=== PATIENT | female | born 1995 | race Caucasian/White ===

== ENCOUNTER 2017-02-01 19:21 | Emergency (ER) | payer BC ==
[2017-02-01] MEDS ORDERED: KETOROLAC TROMETHAMINE 30 MG/ML VIAL IV ONE (19:53)
[2017-02-01] MEDS ORDERED: KETOROLAC TROMETHAMINE 30 MG/ML VIAL ONE (19:55)
--- OUTSIDE RECORDS SUMMARY | 2017-02-01 20:26 | XMS REPORT | Continuity of Care Document ---
:1995 Author Organization [facility] ([facility]) Address [place] [address] Phone [phone] Care Team Providers Name Role Phone Provider, No-Primary Care Primary Care Provider Unavailable Source Comments This disclosure is being made pursuant to the Care Everywhere program, applicable federal and state laws, and may not contain all informaitonavailable regarding this patient.[facility] ([facility]) Active Allergies and Adverse Reactions No Known Allergies Current Medications Prescription Sig. Disp. Refills Start Date End Date Status VITS Take by mouth. Active W-CA,FE,FA,<1MG, ( VITAMIN PO) cephalexin 500 mg Take 1 Cap by mouth 2 10 Cap 0 09/04/2012 Active capsule times daily. Indications: UTI cephalexin 250 mg Take 1 Cap by mouth 30 Cap 1 09/04/2012 Active capsule at bedtime. Indications: UTI prophylaxis Active Problems Problem Noted Date UTI (lower urinary tract infection) 09/04/2012 Social History Tobacco Use Types Packs/Day Years Used Date Never Smoker Alcohol Use Drinks/Week oz/Week Comments No Last Filed Vital Signs Vital Sign Reading Time Taken Blood Pressure 126/65 09/04/2012 10:45 AM [employer] Pulse 85 09/04/2012 10:45 AM [employer] Temperature 36.2 C (97.2 F) 09/04/2012 10:45 AM [employer] Respiratory Rate 16 09/04/2012 10:45 AM [employer] Height 1.702 m (5' 7") 08/23/2012 2:15 PM [employer] Weight 80.1 kg (176 lb 9.4 oz) 08/23/2012 2:15 PM [employer] Body Mass Index 27.65 08/23/2012 2:15 PM [employer] Oxygen Saturation 98% 09/04/2012 10:45 AM [employer] Plan of Care Health Maintenance Due Date Last Done Comments Hepatitis B Vaccine (1 of 3 - Primary Series) 1993 HPV Vaccine (1 of 3 - Female/Unknown 3 Dose Series) 2004 Tdap Vaccine 2004 Cervical Cancer Screening 2011 Lipid Disorder Screening 2011 MMR Vaccine 2011 Td Vaccine 2011 Varicella Vaccine (1 of 2 - Adult - No Evidence of 2011 Immunity) Influenza Vaccine: Seasonal (#1) 05/18/2016 Results from Last 3 Months Not on file
--- NOTE | 2017-02-01 20:39 | ERNOTE ---
Trauma/Assault HPI - General Stated Complaint: HEAD INJURY FELL OFF HORSE Time Seen by Provider: 02/01/17 19:42 Source: patient, family Exam Limitations: no limitations - Immun/Allergies/Home Medications Immunizations: IMMUNIZATION HX Immunizations Up to Date Yes History of Influenza Vaccine Yes Hx Pneumococcal Vaccination More Information Required Allergies/Adverse Reactions: Allergies No Known Allergies Allergy (Verified 02/01/17 19:46) Home Medications: HOME MEDICATIONS HYDROcodone/ACETAMINOPHEN [Vicodin 5-325] 1 - 2 tab PO Q4H PRN 04/11/13 [Last Taken Unknown] Norethindrone-Ethinyl Estrad [Ortho-Novum] 1 each PO DAILY 04/11/13 [Last Taken Unknown] - History of Present Illness Date (Duration): 02/01/17 Time (Timing): 18:45 Narrative: Patient was riding her horse and got bucked off. She only remembers sitting inher mothers van and driving to the hospital. Her father states that he saw her fall, she never loss consciousness, was talking the whole time and it only took a few minutes to get her in the van so her time of amnesia would be 5-10 minutes. She complains of headache 6/10 and pain in her left elbow, mild pain in left knee. Location Occurred: Reports: home Pain Location: Reports: head, upper extremity Method of Injury: Reports: fall Loss of Consciousness: Reports: no loss of consciousness, remembers coming to hospital Associated Symptoms - Trauma: Reports: headache, dizziness. Denies: confusion, vision changes Review of Systems - Review of Systems Constitutional: Absent: recent illness, fever, chills EYE: Absent: double vision ENT: Absent: nose congestion, sore throat Respiratory: Absent: shortness of breath, cough Cardiology: Absent: chest pain, palpitations Gastrointestinal/Abdominal: Absent: nausea, vomiting, diarrhea, abdominal pain Genitourinary: Present: no symptoms reported Musculoskeletal: Present: See HPI Neurological: Present: headache. Absent: weakness, numbness - Patient's Past Medical History Patient History - Medical: No pertinent hx Patient History - Cardiac/Respiratory: No pertinent hx Patient History - Cancer: No Hx of Cancer Patient History - Surgical Procedures: Cholecystectomy Patient History - Other: Other LMP (females 10-50): now LMP (Calendar): 01/30/17 - Social History Living Situations: other Abuse History: No History of abuse Psych History: No pertinent hx Smoking Status: Current every day smoker Have you smoked in the past 12 months: Yes Do you dip or chew tobacco: Yes Patient requests Smoking Cessation Consult: No Initiate information on Smoking Cessation: No Alcohol Use: occasionally Drug Use: none - Immunizations Immunizations Up to Date: Yes Hx Pneumococcal Vaccination: More Information Required to Determine History of Influenza Vaccine: Yes Physical Exam - Physical Exam General Appearance: Present: wd/wn, alert, no apparent distress Eye Exam: Normal inspection: bilateral, PERRL: bilateral, EOMI: bilateral Ears, Nose, Throat: Present: normal ENT inspection, normal pharynx, other - small abrasions on right posterior scalp, non bleeding Neck: Present: normal inspection, nontender, supple, full range of motion Respiratory: Present: no respiratory distress, normal breath sounds, no accessory muscle use, chest nontender, lungs clear Cardiovascular/Chest: Present: regular rate, rhythm, no murmur Gastrointestinal/Abdominal: Present: normal bowel sounds, nontender, nondistended, soft Back Exam: Present: normal inspection, normal range of motion, no CVA tenderness , no vertebral tenderness, other - superficial abrasion left posterior chest, no tenderness Extremity Exam: Present: normal except -, other - small abrasion left anterior knee, no swelling, normal ROM, small abrasion over left elbow, pain of range of motion, no obvious deformety Neurological Exam: Present: alert, oriented, normal mood/affect, no motor/ sensory deficits Skin Exam: Present: normal color, warm/dry ED Progress - Vital Signs Patient's Vital Signs:: I have reviewed the patient's vital signs. Vital Signs: Vital Signs 02/01/17 02/01/17 19:22 20:09 Temperature 37.3 C Pulse Rate 73 70 Respiratory 18 20 Rate Blood Pressure 149/90 146/85 O2 Sat by Pulse 99 70 L Oximetry - X-Ray X-Ray #1 X-Ray: chest - no acute Interpretation: Interp. by me X-Ray #2 X-Ray: elbow - no bony injury Interpretation: Interp. by me X-Ray #3 X-Ray: knee - no bony injury Interpretation: Interp. by me - Progress/Reassessment Chief Complaint: Fall Progress Note-Subjective: 02/01/17 21:07 discussed results with patient and family, feeling much better after toradol Departure Clinical Impression: Concussion Qualifiers: Encounter type: initial encounter Loss of consciousness presence/duration: without LOC Qualified Code(s): S06.0X0A - Concussion without loss of consciousness, initial encounter Contusion of elbow, left Qualifiers: Encounter type: initial encounter Qualified Code(s): S50.02XA - Contusion of left elbow, initial encounter Scalp laceration Qualifiers: Encounter type: initial encounter Qualified Code(s): S01.01XA - Laceration without foreign body of scalp, initial encounter - Departure Disposition: Home self-care Condition: Good Instructions: Concussion, Adult, [id number], Contusion, [id number], Form - Excuse from Work, School, or Physical Activity Additional Instructions: take over the counter ibuprofen as needed for pain Referrals: Elijah Zimmerman MD [Primary Care Provider] -
[2017-02-01 21:38] VITALS: BP 140/90
== END 2017-02-01 21:41 | disposition home or self-care (01) ==
LOC: ER 19:21
DX: S06.0X0A Concussion without loss of consciousness, initial encounter (principal); S50.02XA Contusion of left elbow, initial encounter; S01.01XA Laceration without foreign body of scalp, initial encounter; V80.010A Animal-rider injured by fall from or being thrown from horse in noncollision accident, initial encounter; Y93.52 Activity, horseback riding; Y92.007 Garden or yard of unspecified non-institutional (private) residence as the place of occurrence of the external cause; Y99.8 Other external cause status

== ENCOUNTER 2020-05-27 13:42 | Inpatient (IN) ==
[2020-05-27] MEDS ORDERED: OXYTOCIN/DEXTROSE 5%-WATER 30 UNITS/500 ML BAG IV ONE ×2 (13:55→22:05)
[2020-05-27] MEDS ORDERED: ONDANSETRON 4 MG TAB.RAPDIS PO PRN (13:55)
[2020-05-27] MEDS ORDERED: RINGER'S SOLUTION,LACTATED 1,000 ML IV ONE (13:55)
[2020-05-27 15:07] LABS: Hematocrit 33.1 % (37.0-47.0); Hemoglobin 11.3 gm/dL (12.5-16.0); Mean Cell Volume 92.2 fl (78-100); Mean Corpuscular Hemoglobin 31.5 pg (27-31); Mean Corpuscular Hgb Conc 34.1 g/dl (32-36); Mean Platelet Volume 10.2 fl (8-12.5); Neutrophil # 7.8 K/mm3 (1.3-6.0); Neutrophil % 78.1 % (42-75.0); Platelet Count 165 K/mm3 (150-450); Red Blood Count 3.59 M/mm3 (4.2-5.4); Red Cell Distribution Width 13.4 % (11.5-14.0)
[2020-05-27] MEDS ORDERED: NALOXONE HCL 1 MG/1 ML SYRG IV PRN (17:19)
[2020-05-27] MEDS ORDERED: ONDANSETRON HCL/PF 2 MG/ML VIAL IV PRN (17:19)
[2020-05-27] MEDS ORDERED: BUPIVACAINE HCL/0.9 % NACL/PF 250 ML EP PRN (17:19)
[2020-05-27] MEDS ORDERED: BUPIVACAINE HCL/PF 30 ML VIAL EP SCH (17:30)
--- NOTE | 2020-05-27 17:42 | HP ---
Chief Complaint - Chief Complaint Date of Service: 05/27/20 Time of Service: 13:30 Chief Complaint: LOF History of Present Illness: 24 yo at 38 5/7 weeks presents to L&D from office for SROM with labor. Patient states she awoke from sleep this am around 1030 with continuous leaking of clear fluid down her leg till present. She admits to mild cramping. Denies vaginal bleeding, trauma, or decreased movement. This complicated by anemia, recurrent UTIs, gestational thrombocytopenia, and smoking. Rh positive Rubella immune GBS negative. Medical History (Last Reviewed 05/27/20 @ 17:35 by Isidro Horvath DO) Anemia Onset Date: 03/12/20 w/ Thrombocytopenia Onset Date: 03/12/20 w/ Headache Cholelithiasis Onset Date: ~02/2013 Frequent UTI w/ - Surgical History: Surgical History (Last Reviewed 05/27/20 @ 17:35 by Isidro Horvath DO) Hx laparoscopic cholecystectomy Onset Date: ~04/12/13 Family History: Family History (Last Reviewed 05/27/20 @ 17:35 by Isidro Horvath DO) Mother Hypertension Hyperlipemia Lupus Fibromyalgia Sleep apnea Father Diabetes Hypertension Hyperlipemia Brother Alive and well x2 Sister Alive and well Grandmother Diabetes paternal Grandfather Throat cancer Social History: (Last Updated 05/27/20 @ 17:30 by Isidro Horvath DO) Social History: Marital status: current occupational status: employed current occupation: [employer] Highest education level completed: Associate degree: academi Service: Yes branch: [employer] Tobacco: Smoking Status: Current every day smoker tobacco type: cigarettes Smoking cigarettes per day: 5 Alcohol: alcohol intake: current alcohol intake frequency: holiday/special occasion details: none with Substance Use: substance use type: does not use Dietary Habits: caffeine: Yes caffeine comment: 1- mons Exercise: Physical activity type: none Review Of Systems (GEN) - Review of Systems Generalized/Overall Review: Present: No Symptoms Reported EENTM: Present: No Symptoms Reported Respiratory: Present: No Symptoms Reported Cardiac: Present: No Symptoms Reported Abdominal: Present: Other - mild cramping Genitourinary: Present: Other - LOF since 1030 - clear Musculoskeletal: Present: No Symptoms Reported Neurological: Present: No Symptoms Reported Skin: Present: No Symptoms Reported Endocrine: Present: No Symptoms Reported Immunizations: IMMUNIZATION HX Immunizations Up to Date Yes History of Influenza Vaccine Yes Hx Pneumococcal Vaccination More Information Required Allergies/Adverse Reactions: Allergies Allergy/AdvReac Type Severity Reaction Status Date / Time No Known Allergies Allergy Verified 05/27/20 14:00 Home Medications: HOME MEDICATIONS nitrofurantoin macrocrystal 50 mg capsule 50 mg PO HS #30 cap 01/08/20 [Last Ta sonia Unknown] acetaminophen 325 mg capsule 325 mg PO Q6H PRN 02/05/20 [Last Taken Unknown] calcium carbonate 300 mg (750 mg) chewable tablet 300 mg PO QID PRN 02/05/20 [Last Taken Unknown] ferrous sulfate 325 mg (65 mg iron) tablet 325 mg PO BID #60 tab 03/12/20 [Last Taken Unknown] Vits96/Iron Fum/Folic [ S] 1 tab PO DAILY 05/27/20 [Last Taken Unknown] Exam - Exam Vital Signs: Vital Signs - Last Taken Temp 36.4 C 05/27/20 16:37 Pulse 101 H 05/27/20 16:37 Resp 16 05/27/20 16:37 BP 114/74 05/27/20 16:37 Pulse Ox 98 05/27/20 16:37 Constitutional: Present: Alert, Oriented x3, Cooperative, No distress ENT Exam: Present: hearing grossly normal Breasts: Present: Exam deferred Respiratory: Present: lungs clear, no respiratory distress Cardiovascular/Chest: Present: normal peripheral pulses, regular rate, rhythm, no edema Abdomen: Present: soft, nontender, no rebound tenderness, other - gravid /Rectal: Present: Other - Cervix 3/50/-2, gross ROM - clear Extremity: Present: no pedal edema, no calf tenderness Skin Exam: Present: normal color, warm/dry, no cyanosis Neurologic: Present: alert, normal mood/affect, oriented x 3 Appearance: Present: appropriate appearance, appropriate insight Eye contact: Present: cooperative, good eye contact Thoughts: Present: normal thought pattern, normal mood /affect Diagnostic Studies: Abnormal Lab Results 05/27/20 Range/Units 14:58 RBC 3.59 L (4.2-5.4) M/mm3 Hgb 11.3 L (12.5-16.0) gm/dL Hct 33.1 L (37.0-47.0) % MCH 31.5 H (27-31) pg Immature Gran % (Auto) 2.10 H (0.001-0.429) % Immature Gran # (Auto) 0.21 H (0.000-0.0310) K/mm3 Neutrophils % 78.1 H (42-75.0) % Lymphocytes % 9.3 L (20-51) % Monocytes % 9.2 H (0.0-9) % Neutrophils # 7.8 H (1.3-6.0) K/mm3 Lymphocytes # 0.93 L (1.5-3.5) k/mm3 Laboratory Results WBC 10.0 K/mm3 (4.0-10.5) 05/27/20 14:58 RBC 3.59 M/mm3 (4.2-5.4) L 05/27/20 14:58 Hgb 11.3 gm/dL (12.5-16.0) L 05/27/20 14:58 Hct 33.1 % (37.0-47.0) L 05/27/20 14:58 MCV 92.2 fl (78-100) 05/27/20 14:58 MCH 31.5 pg (27-31) H 05/27/20 14:58 MCHC 34.1 g/dl (32-36) 05/27/20 14:58 RDW 13.4 % (11.5-14.0) 05/27/20 14:58 Plt Count 165 K/mm3 (150-450) 05/27/20 14:58 MPV 10.2 fl (8-12.5) 05/27/20 14:58 Immature Gran % (Auto) 2.10 % (0.001-0.429) H 05/27/20 14:58 Immature Gran # (Auto) 0.21 K/mm3 (0.000-0.0310) H 05/27/20 14:58 Neutrophils % 78.1 % (42-75.0) H 05/27/20 14:58 Lymphocytes % 9.3 % (20-51) L 05/27/20 14:58 Monocytes % 9.2 % (0.0-9) H 05/27/20 14:58 Eosinophils % 0.9 % (0.0-3.0) 05/27/20 14:58 Basophils % 0.4 % (0.0-1.0) 05/27/20 14:58 Nucleated RBC % 0.0 k/mm3 (0-1) 05/27/20 14:58 Neutrophils # 7.8 K/mm3 (1.3-6.0) H 05/27/20 14:58 Lymphocytes # 0.93 k/mm3 (1.5-3.5) L 05/27/20 14:58 Monocytes # 0.9 k/mm3 (0.0-1.0) 05/27/20 14:58 Eosinophils # 0.1 k/mm3 (0.0-0.7) 05/27/20 14:58 Absolute Basophils 0.0 k/mm3 (0.0-0.1) 05/27/20 14:58 Assessment/Plan - Assessment/Plan (1) SROM (spontaneous rupture of membranes) Assessment: Admit for management of labor. Epidural and pitocin PRN. Problem: Acute (2) Gestational thrombocytopenia without hemorrhage Problem: Acute Qualifiers: Trimester: third trimester Qualified Code(s): O99.113 - Other diseases of the blood and blood-forming organs and certain disorders involving the immune mechanism complicating , third trimester; D69.6 - Thrombocytopenia, unspecified (3) Recurrent UTI (urinary tract infection) complicating Problem: Chronic (4) Smoker Problem: Chronic (5) Anemia Problem: Acute Qualifiers: Anemia type: iron deficiency Iron deficiency anemia type: inadequate dietary iron intake Qualified Code(s): D50.8 - Other iron deficiency anemias
--- NOTE | 2020-05-27 17:49 | ANES ---
Anesthesia Pre Procedure Eval Vitals/Labs: Last Vital Signs Temp 36.4 C 05/27/20 16:37 Pulse 101 H 05/27/20 16:37 Resp 16 05/27/20 16:37 BP 114/74 05/27/20 16:37 Pulse Ox 98 05/27/20 16:37 HOME MEDICATIONS nitrofurantoin macrocrystal 50 mg capsule 50 mg PO HS #30 cap 01/08/20 [Last Taken Unknown] acetaminophen 325 mg capsule 325 mg PO Q6H PRN 02/05/20 [Last Taken Unknown] calcium carbonate 300 mg (750 mg) chewable tablet 300 mg PO QID PRN 02/05/20 [Last Taken Unknown] ferrous sulfate 325 mg (65 mg iron) tablet 325 mg PO BID #60 tab 03/12/20 [Last Taken Unknown] Vits96/Iron Fum/Folic [ S] 1 tab PO DAILY 05/27/20 [Last Taken Unknown] Allergies/Adverse Reactions: Allergies Allergy/AdvReac Type Severity Reaction Status Date / Time No Known Allergies Allergy Verified 05/27/20 14:00 - Planned Procedure Planned Procedure: Labor epidural Medication List Reviewed:: Yes Allergies Verified: Yes Medical History (Last Reviewed 05/27/20 @ 17:46 by Marshall Dwyer CRNA) Anemia Onset Date: 03/12/20 w/ Thrombocytopenia Onset Date: 03/12/20 w/ Headache Cholelithiasis Onset Date: ~02/2013 Frequent UTI w/ - Surgical History (Last Reviewed 05/27/20 @ 17:35 by Isidro Horvath DO) Hx laparoscopic cholecystectomy Onset Date: ~04/12/13 Family History (Last Reviewed 05/27/20 @ 17:35 by Isidro Horvath DO) Mother Hypertension Hyperlipemia Lupus Fibromyalgia Sleep apnea Father Diabetes Hypertension Hyperlipemia Brother Alive and well x2 Sister Alive and well Grandmother Diabetes paternal Grandfather Throat cancer - Family Anesthesia History Family History:: no untoward family reactions to anesthesia, no familial bleeding tendencies, no family history of clotting disorders, no family history of premature - Anesthesia Assessment and Plan ASA Class: PS, II Anesthesia Type Plan: Epidural
--- NOTE | 2020-05-27 18:06 | ANES ---
Anesthesia Procedure Note Procedure Note: ANESTHESIA PROCEDURE NOTE Date of Procedure: 05/27/2020. Time of procedure: 1750. Performed by: Marshall Dwyer CRNA Knowledge Engineer: None. Preprocedure diagnosis: Active labor. Post procedure diagnosis: Same. Procedure: Insertion of labor epidural. Indications: The patient is a 24-year-old female in active labor requesting labor epidural for pain management. Findings: See below. Details of the procedure: The patient was placed in a sitting position. DuraPrep as well as Betadine swabs X3 was applied to the patient's back. Patient was then draped in a sterile fashion. Lidocaine 1% was infiltrated to the skin and subcutaneous tissues at the level of the L3-4 interspace. The epidural space was identified using a 18-gauge Tuohy needle with [id number] technique. Epidural catheter was inserted to a depth of 10 centimeters at skin. Negative test dose was elicited using 3 mL of 1.5% preservative-free lidocaine plus epinephrine 1 200,000. The epidural catheter was then taped and secured in place. A loading dose of 8 mL of 0.25% preservative-free bupivacaine was administered to the epidural catheter after negative aspiration for blood and CSF. EBL: Minimal. Fluids: N/A. Specimen: N/A. Post procedure condition: The patient tolerated the procedure well. No complications were noted. Thank you for this consultation. Marshall Dwyer CRNA
--- NOTE | 2020-05-27 18:07 | ANES ---
Post Anesthesia Assessment - Vital Signs Vitals: Last Vital Signs Temp 36.4 C 05/27/20 16:37 Pulse 101 H 05/27/20 16:37 Resp 16 05/27/20 16:37 BP 114/74 05/27/20 16:37 Pulse Ox 98 05/27/20 16:37 Airway Patency: Normal - Mental Status Level Of Consciousness: Awake - N/V Assessment Nausea/Vomiting Presence: None Dehydration:: No
--- NOTE | 2020-05-27 18:38 | PN ---
Progess Note - Interim Date: 05/27/20 Time: 18:36 Narrative: 05/27/20 18:36 Patient comfortable with epidural Vital signs stable. Pitocin at 6 mu/min. FHT: 120 baseline, reassuring contractions q 2 min Cervix: 5/60/-2 Impression: Intrauterine at 38-5/7 weeks- SROM with augmentation of labor. Plan: IUPC placed due to difficulty of monitoring contractions. Continue present plan
[2020-05-27] MEDS ORDERED: DEXTROSE 5%-LACTATED RINGERS 1,000 ML IV PRN (19:30)
--- NOTE | 2020-05-27 22:04 | OR ---
Operative Report - Dictated Report Narrative: Spontaneous vaginal delivery of vigorously crying viable female at 2141 on 05/27/2020 with Apgars 8 and 9, weighing 3359 g in CASSANDRA position with tight nuchal cord x1. Cord clamping delayed approximately 1 minute Placenta delivered complete, intact, with three vessel cord Estimated blood loss: 100 mL Anesthesia: Epidural Lacerations: First-degree vaginal laceration repaired with 3-0 Vicryl Rapide. First-degree clitoral rosen laceration not repaired. History for MU History for Definition: * The number of deliveries resulting in a live the patient experienced prior to current hospitalization * The previous delivery of live twins or any live multiple gestation is considered one live event. *If primagravida or nulliparous is documented select zero for the number of previous live births. Live Events: Live Events: 1
[2020-05-27] MEDS ORDERED: GLYCERIN/WITCH HAZEL LEAF 40 APPL BOX TP PRN (22:05)
[2020-05-27] MEDS ORDERED: SENNOSIDES 8.6 MG TABLET PO PRN (22:05)
[2020-05-27] MEDS ORDERED: BISACODYL 10 MG SUPP.RECT RC PRN (22:05)
[2020-05-27] MEDS ORDERED: IBUPROFEN 800 MG TABLET PO PRN (22:05)
[2020-05-27] MEDS ORDERED: BENZOCAINE/MENTHOL 81 SPRAY CAN TP PRN (22:05)
[2020-05-27] MEDS ORDERED: HYDROCORTISONE 30 APPL TUBE TP PRN (22:05)
[2020-05-28] MEDS: IBUPROFEN 800 MG TABLET PO PRN ×2 (00:11→11:06)
[2020-05-28] MEDS: oxyCODONE HCL/ACETAMINOPHEN 1 TAB TABLET PO PRN ×3 (01:07→23:37)
[2020-05-28] MEDS ORDERED: CALCIUM CARBONATE 500 MG TAB.CHEW PO PRN (09:00)
[2020-05-28] MEDS: PRENATAL VITS96/IRON FUM/FOLIC 1 TAB TABLET PO SCH (11:05)
[2020-05-28] MEDS: FERROUS SULFATE 325 MG TABLET PO SCH ×2 (11:05→21:28)
[2020-05-28] MEDS: DOCUSATE SODIUM 100 MG CAPSULE PO SCH ×2 (11:05→21:26)
--- NOTE | 2020-05-28 12:49 | PN ---
Subjective - Date and Time Seen Date: 05/28/20 Time: 12:49 Objective - Vitals Vitals: Last Vital Signs Temp 36.7 C 05/28/20 12:02 Pulse 62 05/28/20 12:02 Resp 18 05/28/20 12:02 BP 113/61 05/28/20 12:02 Pulse Ox 100 05/28/20 12:02 Patient denies complaints. Bottlefeeding Lochia wnl abdomen - soft, nontender Uterus -firm, at umbilicus - 1 no calf tenderness Impression: day #1 - s/p spontaneous vaginal delivery. Plan: Continue routine care - Abnormal Lab Findings Abnormal Lab Findings: Abnormal Lab Results 05/27/20 Range/Units 14:58 RBC 3.59 L (4.2-5.4) M/mm3 Hgb 11.3 L (12.5-16.0) gm/dL Hct 33.1 L (37.0-47.0) % MCH 31.5 H (27-31) pg Immature Gran % (Auto) 2.10 H (0.001-0.429) % Immature Gran # (Auto) 0.21 H (0.000-0.0310) K/mm3 Neutrophils % 78.1 H (42-75.0) % Lymphocytes % 9.3 L (20-51) % Monocytes % 9.2 H (0.0-9) % Neutrophils # 7.8 H (1.3-6.0) K/mm3 Lymphocytes # 0.93 L (1.5-3.5) k/mm3 Cauti Physician Documentation - Urinary Catheter Management Urethral (Denney) Date of Insertion: 05/27/20 Time of Insertion: 18:26 Date of Removal: 05/27/20 Time of Removal: 21:11 Assessment/Plan - Problems/Diagnosis (1) SROM (spontaneous rupture of membranes) Problem: Acute (2) Gestational thrombocytopenia without hemorrhage Problem: Acute Qualifiers: Trimester: third trimester Qualified Code(s): O99.113 - Other diseases of the blood and blood-forming organs and certain disorders involving the immune mechanism complicating , third trimester; D69.6 - Thrombocytopenia, unspecified (3) Recurrent UTI (urinary tract infection) complicating Problem: Chronic (4) Smoker Problem: Chronic (5) Anemia Problem: Acute Qualifiers: Anemia type: iron deficiency Iron deficiency anemia type: inadequate dietary iron intake Qualified Code(s): D50.8 - Other iron deficiency anemias
[2020-05-29] MEDS: oxyCODONE HCL/ACETAMINOPHEN 1 TAB TABLET PO PRN (07:04)
[2020-05-29] MEDS: IBUPROFEN 800 MG TABLET PO PRN (07:04)
--- NOTE | 2020-05-29 09:29 | PN ---
Subjective - Date and Time Seen Date: 05/29/20 Time: 09:29 Objective - Vitals Vitals: Last Vital Signs Temp 36.7 C 05/28/20 23:35 Pulse 57 L 05/28/20 23:35 Resp 18 05/28/20 23:35 BP 114/72 05/28/20 23:35 Pulse Ox 98 05/28/20 23:35 Patient denies complaints. Bottlefeeding Lochia wnl abdomen - soft, nontender Uterus -firm, at umbilicus - 2 no calf tenderness Impression: day #2 - s/p spontaneous vaginal delivery. Desires permanent sterilization Plan: Routine discharge instructions. Scheduled for sterilization preop in 2 weeks. Cauti Physician Documentation - Urinary Catheter Management Urethral (Denney) Date of Insertion: 05/27/20 Time of Insertion: 18:26 Date of Removal: 05/27/20 Time of Removal: 21:11 Assessment/Plan - Problems/Diagnosis (1) SROM (spontaneous rupture of membranes) Problem: Acute (2) Gestational thrombocytopenia without hemorrhage Problem: Acute Qualifiers: Trimester: third trimester Qualified Code(s): O99.113 - Other diseases of the blood and blood-forming organs and certain disorders involving the immune mechanism complicating , third trimester; D69.6 - Thrombocytopenia, unspecified (3) Recurrent UTI (urinary tract infection) complicating Problem: Chronic (4) Smoker Problem: Chronic (5) Anemia Problem: Acute Qualifiers: Anemia type: iron deficiency Iron deficiency anemia type: inadequate dietary iron intake Qualified Code(s): D50.8 - Other iron deficiency anemias
[2020-05-29] MEDS: DOCUSATE SODIUM 100 MG CAPSULE PO SCH (09:46)
[2020-05-29] MEDS: PRENATAL VITS96/IRON FUM/FOLIC 1 TAB TABLET PO SCH (09:46)
[2020-05-29] MEDS: FERROUS SULFATE 325 MG TABLET PO SCH (09:46)
[2020-05-29 14:37] VITALS: BP 114/57
== END 2020-05-29 10:40 | disposition home or self-care (01) | DRG 806 ==
LOC: OB 13:42 → MS 05-28 12:59
PROVIDERS: ADMIT Obstetrics & Gynecology; ATTEND Obstetrics & Gynecology
CPT/HCPCS: 36415; 59025; 85025